=== PATIENT | male | born 1960 | race Caucasian/White ===

== ENCOUNTER → 2018-11-08 10:32 | Outpatient (CLI) | payer MEDICAID | END | disposition home or self-care (01) | LOC: D.US 10:32 | PROVIDERS: ATTEND Family Medicine | DX: J44.9 Chronic obstructive pulmonary disease, unspecified (principal); R10.13 Epigastric pain ==

== ENCOUNTER → 2019-12-27 12:55 | Outpatient (CLI) | payer MEDICAID | END | disposition home or self-care (01) | LOC: D.LAB 12:55 | PROVIDERS: ATTEND Family Medicine | DX: S22.32XA Fracture of one rib, left side, initial encounter for closed fracture (principal) ==